=== PATIENT | female | born 1965 | race Caucasian/White ===

== ENCOUNTER → 2016-09-17 | Outpatient (CLI) | payer OTHER | LOC: BRMIMAGING 12:03 | PROVIDERS: ATTEND Physician Assistant Medical | DX: R05 Cough (principal) | CPT/HCPCS: 71020-PO ==

== ENCOUNTER → 2017-09-11 | Outpatient (CLI) | payer OTHER | LOC: BRMIMAGING 12:07 | PROVIDERS: ATTEND Neurological Surgery | DX: Z98.1 Arthrodesis status (principal); M51.37 Other intervertebral disc degeneration, lumbosacral region | CPT/HCPCS: 72100-PO ==